=== PATIENT | female | born 1975 | race Hispanic/Latino ===

== ENCOUNTER 2018-11-14 08:12 | Emergency (ER) | payer OTHER ==
[2018-11-14] MEDS ORDERED: BOOSTRIX IM ONE (09:05)
[2018-11-14] MEDS ORDERED: XYLOCAINE 2% INFILTRATI ONE (09:05)
--- NOTE | 2018-11-14 09:08 | Emergency Department Report ---
ED Laceration HPI - HPI Chief Complaint: Wound/Laceration Stated Complaint: RT HEAL LACERATION/PAIN Time Seen by Provider: 11/14/18 08:33 Occurred When: Today Location: Lower Extremity Tetanus Status: Not up to Date Laceration Symptoms: Yes Pain, No Foreign Body Sensation, No Numbness, No Weakness Other History: Since a 43-year-old female who presents with a laceration to right posterior ankle. Past medical history of hypertension. Patient stays she was a work and a wound apparently smacked her right heel 45 minutes to one hour prior to arrival. Patient states her job wrapped wound with gauze and tape. Patient is unsure of last tetanus vaccine. She denies numbness or tingling, weakness, swelling. ED Review of Systems ROS: Stated complaint: RT HEAL LACERATION/PAIN Other details as noted in HPI Constitutional: denies: chills, fever Respiratory: denies: cough, shortness of breath, wheezing Cardiovascular: denies: chest pain, palpitations Gastrointestinal: denies: abdominal pain, nausea, diarrhea Skin: lesions (laceration right heel). denies: rash Neurological: denies: headache, weakness, paresthesias Psychiatric: denies: anxiety, depression ED Past Medical Hx - Past Medical History Previous Medical History?: Yes Hx Hypertension: Yes Additional medical history: IBS - Surgical History Past Surgical History?: Yes Hx Cholecystectomy: Yes Additional Surgical History: x 2. breast surgery - Social History Smoking Status: Never Smoker Substance Use Type: None - Medications Home Medications: Home Medications Medication Instructions Recorded Confirmed Last Taken Type Clindamycin [Clindamycin CAP] 300 mg PO Q8H #21 cap 11/14/18 Unknown Rx Ibuprofen [Motrin 800 MG tab] 800 mg PO Q8HR PRN #20 tablet 11/14/18 Unknown Rx Laceration Physical Exam - Exam General: Vital signs noted. No distress. Alert and acting appropriately. Wound Length (cm): 7 Laceration Location: Lower Extremity Full Body Front + Back: 1 - 7 cm laceration into the right posterior distal tibia-fibula, serosanguineous drainage, tenderness, no surrounding cellulitis or swelling. Laceration Exam: Yes Normal Distal CMS, No Foreign Body, No Exposed Tendon, Vessel, or Nerve, No Tendon Injury ED Course Vital Signs 11/14/18 08:15 Temperature 97.9 F Pulse Rate 107 H Respiratory 18 Rate Blood Pressure 155/101 O2 Sat by Pulse 99 Oximetry Vital Signs 11/14/18 11/14/18 08:15 11:35 Temperature 97.9 F 98.7 F Pulse Rate 107 H 95 H Respiratory 18 18 Rate Blood Pressure 155/101 Blood Pressure 127/77 [Left] O2 Sat by Pulse 99 97 Oximetry - Laceration /Wound Repair Right Posterior Ankle Wound Location: lower extremity Wound Length (cm): 7 Wound's Depth, Shape: into muscle, irregular, flap Wound Explored: no foreign body removed Irrigated w/ Saline (ccs): 30 Betadine Prep?: Yes Anesthesia: 1% Lidocaine (2% lidocaine w/o Epi) Volume Anesthetic (ccs): 6 Wound Debrided: minimal Wound Repaired With: sutures Suture Size/Type: 4:0 Number of Sutures: 23 Layer Closure?: No Sterile Dressing Applied?: Yes ED Medical Decision Making - Radiology Data Radiology results: report reviewed laceration posterior r/o foreign object TECHNICAL DATA: Four views of the ankle were obtained in the AP, lateral, and obliques. FINDINGS: There is no acute fracture, dislocation, or subluxation. There is no joint effusion or soft tissue swelling. The tibial plafond, ankle mortise, and talar dome are intact. IMPRESSION: No acute radiographic abnormality. - Medical Decision Making Patient examined by me. Patient is non-toxic appearing and stable. X-ray of right ankle was obtained and No acute radiographic abnormality. Given booster aches vaccine while in ER. Laceration closed with sutures, review note. Discharged home for outpatient treatment with clindamycin and naproxin. Discussed ER care plan with patient. Patient agreed with plan. F/U with PCP. Critical care attestation.: If time is entered above; I have spent that time in minutes in the direct care of this critically ill patient, excluding procedure time. ED Disposition Clinical Impression: Laceration of ankle Qualifiers: Encounter type: initial encounter Laterality: right Qualified Code(s): S91.011A - Laceration without foreign body, right ankle, initial encounter Disposition: - TO HOME OR SELFCARE Is pt being admited?: No Does the pt Need Aspirin: No Condition: Stable Instructions: Suture Care (ED), Laceration (ED) Additional Instructions: Take antibiotics as prescribed for the full course. Keep wound dry and clean for 48 hours. Avoid putting to much tension on wound site. Follow up with Primary Care Provider in 2-3 days. Have sutures removed in 7-10 day by primary care provider or in ER. Return to ER if red, swollen, foul discharge, or fever. Prescriptions: Clindamycin [Clindamycin CAP] 300 mg PO Q8H #21 cap Ibuprofen [Motrin 800 MG tab] 800 mg PO Q8HR PRN #20 tablet PRN Reason: Pain , Severe (7-10) Referrals: STEFANIA SCHWARZ MD [Primary Care Provider] - 3-5 Days Forms: Work/School Release Form(ED) Time of Disposition: 11:02
--- NOTE | 2018-11-14 10:02 | XRay Report ---
CLINICAL DATA: laceration posterior r/o foreign object TECHNICAL DATA: Four views of the ankle were obtained in the AP, lateral, and obliques. FINDINGS: There is no acute fracture, dislocation, or subluxation. There is no joint effusion or soft tissue sw elling. The tibial plafond, ankle mortise, and talar dome are intact. IMPRESSION: No acute radiographic abnormality. Signer Name: Bala Albrecht MD Signed: 11/14/2018 9:58 AM Workstation Name: [id number]
[2018-11-14 11:38] VITALS: BP 127/77
== END 2018-11-14 11:39 | disposition home or self-care (01) ==
LOC: ED 08:12
DX: S91.011A Laceration without foreign body, right ankle, initial encounter (principal); I10 Essential (primary) hypertension; K58.9 Irritable bowel syndrome, unspecified; Z90.49 Acquired absence of other specified parts of digestive tract; Z79.899 Other long term (current) drug therapy; Z91.018 Allergy to other foods; W22.8XXA Striking against or struck by other objects, initial encounter; Y93.89 Activity, other specified; Y92.69 Other specified industrial and construction area as the place of occurrence of the external cause; Y99.0 Civilian activity done for income or pay
CPT/HCPCS: 90471; 90715